=== PATIENT | female | born 1980 | race Caucasian/White ===

== ENCOUNTER → 2021-01-01 | Outpatient (CLI) | payer BC ==
--- NOTE | 2021-01-05 10:45 | HM ---
HOLTER MONITOR REPORT Patient was monitored for 24 hours. The baseline rhythm is a sinus mechanism with normal conduction. The average rate 71 beats per minute, minimum 47, maximum 110 beats per minute. Ventricular ectopic activity was present in the form of occasional single PVCs. Supraventricular ectopic activity was present in the form of rare single PACs. No atrial fibrillation was noted. Symptoms of heart flutter, chest discomfort, palpitations correlated at times with the single PVCs. CONCLUSION: 1. Sinus mechanism, baseline rhythm. 2. Occasional ventricular ectopic activity. 3. Rare supraventricular ectopic activity. 4. Symptoms of fluttering and dyspnea as well as chest discomfort correlated at times with the single PVCs. MMODL / IJN: [id number] /
== END | disposition home or self-care (01) ==
LOC: RADECHMAIN 11:52
PROVIDERS: ATTEND Family Medicine
DX: I49.8 Other specified cardiac arrhythmias (principal); R06.00 Dyspnea, unspecified; R07.89 Other chest pain
CPT/HCPCS: 93225; 93226

== ENCOUNTER 2021-07-12 19:36 | Emergency (ER) | payer BC ==
[2021-07-12] MEDS ORDERED: ASPIRIN 81 MG PO STA (19:45)
--- NOTE | 2021-07-12 19:50 | ED ---
General Adult HPI <Danielle Dong - Last Filed: 07/12/21 19:46> - General Source: RN notes reviewed, old records reviewed <Gabino Polo - Last Filed: 07/12/21 22:52> <Jerson Villa - Last Filed: 07/13/21 01:05> - General Chief complaint: Chest Pain Stated complaint: Chest pain,Arm pain Time Seen by Provider: 07/12/21 19:46 - History of Present Illness Initial comments: 41 year-old female patient with past history significant for hypertension, anodal re-entrant tachycardia s/p ablation presents to the emergency department for evaluation of left arm pain and chest pain. Patient states she does feel short of breath. Reports some nausea. States she is having sharp stabbing pains in the left arm and in the chest. States she feels like she has a lump in her throat. Denies cough, fever, or chills. Denies numbness or tingling. Reports bilateral foot swelling which is not unusual for her. Does admit to smoking cigarettes. No alcohol. Does have family history of of CAD in mother, CHF in father. (Danielle Dong) Patient was initially evaluated by the mid-level provider in the waiting room.. History is as above. In addition, patient is primarily complaining of left arm pain in the lower arm near her hand and forearm. There is no left shoulder pain. She endorses a strange tightness in her chest as well as subjective dyspnea that began this afternoon as well. She denies any leg swelling, history of blood clots. She does have an IUD releases hormone therapy. She denies any hemoptysis. She has any fevers, chills, sick contacts. She did receive her covid 19 vaccination. She presents over concern for the chest discomfort as well as dyspnea which is atypical. Chest pain does improve with rest, and seems to exacerbate with movement, as does the dyspnea. She is also uncertain what is causing her left lower arm pain, but she does have history of radiculopathy. She denies any fevers, chills, cough, sick contacts. Patient is a chronic tobacco user. (Gabino Polo) - Related Data Home Medications Medication Instructions Recorded Confirmed Bisoprolol-Hctz 10-6.25 mg [Ziac 1 tab PO DAILY 07/12/21 07/12/21 10-6.25 MG] L.acidoph,Paracasei, B.lactis 1 cap PO DAILY 07/12/21 07/12/21 [Probiotic] Levothyroxine Sodium [Synthroid] 175 mcg PO DAILY 07/12/21 07/12/21 Omeprazole [PriLOSEC] 40 mg PO DAILY 07/12/21 07/12/21 Turmeric Root Extract [Turmeric] 500 mg PO DAILY 07/12/21 07/12/21 Previous Rx's Medication Instructions Recorded Azithromycin [Zithromax Z-pack (6 0 mg PO DIRECTED #1 pack 07/13/21 tabs)] Allergies Allergy/AdvReac Type Severity Reaction Status Date / Time ibuprofen Allergy Anaphylaxis Verified 07/12/21 23:15 Review of Systems ROS Other: All systems not noted in ROS Statement are negative. <Danielle Dong - Last Filed: 07/12/21 19:46> ROS Other: All systems not noted in ROS Statement are negative. <Gabino Polo - Last Filed: 07/12/21 22:52> ROS Other: All systems not noted in ROS Statement are negative. <Jerson Villa - Last Filed: 07/13/21 01:05> ROS Statement: Those systems with pertinent positive or pertinent negative responses have been documented in the HPI. Review of Systems: CONST: Denies fever EYES: Denies blurry vision ENT: Denies nasal congestion C/V: Endorses chest pain RESP: Endorses shortness of breath GI: Denies abdominal pain : Denies dysuria SKIN: Denies rash. MSK: Endorses left hand pain. NEURO: Denies headache (Gabino Polo) General Exam <Gabino Polo - Last Filed: 07/12/21 22:52> General appearance: alert, in no apparent distress Head exam: Present: atraumatic, normocephalic, normal inspection Eye exam: Present: normal appearance, PERRL, EOMI. Absent: scleral icterus, conjunctival injection, periorbital swelling ENT exam: Present: normal exam, mucous membranes moist Neck exam: Present: normal inspection. Absent: tenderness, meningismus, lymphadenopathy Respiratory exam: Present: normal lung sounds bilaterally. Absent: respiratory distress, wheezes, rales, rhonchi, stridor Cardiovascular Exam: Present: regular rate, normal rhythm, normal heart sounds. Absent: systolic murmur, diastolic murmur, rubs, gallop, clicks GI/Abdominal exam: Present: soft, normal bowel sounds. Absent: distended, tenderness, guarding, rebound, rigid Extremities exam: Present: normal inspection, full ROM, normal capillary refill. Absent: tenderness, pedal edema, joint swelling, calf tenderness Back exam: Present: normal inspection Neurological exam: Present: alert, oriented X3, CN II-XII intact Psychiatric exam: Present: normal affect, normal mood Skin exam: Present: warm, dry, intact, normal color. Absent: rash <Jerson Villa - Last Filed: 07/13/21 01:05> - General Exam Comments Initial Comments: General: Appears in no acute distress. HEAD: Normal with no signs of head trauma. EYES: PERRLA, EOMI, conjunctiva normal, no discharge. ENT: Hearing grossly intact, normal oropharynx. RESPIRATORY: Clear breath sounds bilaterally. No wheezes, rales, or rhonchi. C/V: Regular rate and rhythm. S1 and S2 auscultated, no edema, peripheral pulses 2+ and intact throughout. chest pain is nonreproducible on palpation. ABD: Abd is soft, nontender, nondistended EXT: Normal range of motion, no obvious deformity SKIN: Patient's left hand and forearm pain is reproducible on flexion of her fingers. There is no reproducible on palpation. States that it is overall improved from earlier. NEURO: Alert and oriented 4. (Gabino Polo) Course <Jerson Villa - Last Filed: 07/13/21 01:05> Vital Signs 07/12/21 07/12/21 07/13/21 19:47 22:00 00:00 Temperature 97.4 F L Pulse Rate 72 75 71 Respiratory 18 18 20 Rate Blood Pressure 172/95 129/86 114/68 O2 Sat by Pulse 100 99 99 Oximetry - Reevaluation(s) Reevaluation #1: 07/13/21 01:03 Medical records reviewed (Jerson Villa) Reevaluation #2: 07/13/21 01:04 Patient resting comfortable on reevaluation, no current chest pain (Jerson Villa) Reevaluation #3: 07/13/21 01:04 Patient spoke with regarding findings and results, questions answered (Jerson Villa) Reevaluation #4: 07/13/21 01:04 Patient prefers discharged home on outpatient treatment for pneumonia (Jerson Villa) Medical Decision Making - Lab Data Result diagrams: 07/12/21 20:04 07/12/21 20:04 - EKG Data -: EKG Interpreted by Me <Gabino Polo - Last Filed: 07/12/21 22:52> - Lab Data Result diagrams: 07/12/21 20:04 07/12/21 20:04 - Radiology Data Radiology results: report reviewed (Chest x-ray shows possible pulmonary edema, CTA chest does show pneumonia, no PE), image reviewed <Jerson Villa - Last Filed: 07/13/21 01:05> - Medical Decision Making Based on the patient's presentation and physical exam, I do believe that cardiac workup was just fine is placed by the mid-level provider. I would like to add a d-dimer at this time over concern for possible pulmonary embolism. Patient has a low Wells score for PE. She will be placed on continuous cardiac monitoring. She'll be given an aspirin. She'll also be given Tylenol for her left hand pain. She was in agreement this plan. EKG shows no signs of acute ischemia. Chest x-ray reveals no acute cardio pulmonary process. Lavatory studies are remarkable for a slight leukocytosis of 10.9 which may be reactive. Patient's d-dimer is elevated to 0.65. The remainder of her labs are unremarkable including a negative troponin. Troponin was drawn greater than 4 hours after symptom onset. On reevaluation, patient states her chest pain and shortness of breath have improved. States that her pain in her left hand is under control. I did discuss with her the results of her positive d-dimer would like to obtain a CT PE to rule out pulmonary embolism. She was in agreement this plan. Patient will likely be discharged home if CT PE is negative. Heart scores low at 2. Patient was signed out to the [facility] emergency department physician, Dr. Villa, pending results of CT PE. (Gabino Polo) 41 female to the ER with chest pain, history of high blood pressure. Patient presents today for evaluation regards to chest pain is negative EKG negative troponin, CT negative for PE positive for pneumonia. Patient replacement antibiotics and discharged home (Jerson Villa) - Lab Data Lab Results 07/12/21 07/12/21 07/12/21 Range/Units 20:04 20:04 20:04 WBC 10.9 H (3.8-10.6) k/uL RBC 5.43 H (3.80-5.40) m/uL Hgb 13.5 (11.4-16.0) gm/dL Hct 43.2 (34.0-46.0) % MCV 79.6 L (80.0-100.0) fL MCH 24.9 L (25.0-35.0) pg MCHC 31.3 (31.0-37.0) g/dL RDW 16.9 H (11.5-15.5) % Plt Count 324 (150-450) k/uL MPV 7.6 Neutrophils % 72 % Lymphocytes % 21 % Monocytes % 3 % Eosinophils % 2 % Basophils % 1 % Neutrophils # 7.8 H (1.3-7.7) k/uL Lymphocytes # 2.3 (1.0-4.8) k/uL Monocytes # 0.3 (0-1.0) k/uL Eosinophils # 0.2 (0-0.7) k/uL Basophils # 0.1 (0-0.2) k/uL Hypochromasia Slight Anisocytosis Slight Microcytosis Slight PT 10.0 (9.0-12.0) sec INR 0.9 (<1.2) APTT 24.6 (22.0-30.0) sec D-Dimer (<0.60) mg/L FEU Sodium 137 (137-145) mmol/L Potassium 4.0 (3.5-5.1) mmol/L Chloride 104 (98-107) mmol/L Carbon Dioxide 24 (22-30) mmol/L Anion Gap 9 mmol/L BUN 7 (7-17) mg/dL Creatinine 0.55 (0.52-1.04) mg/dL Est GFR (CKD-EPI)AfAm >90 (>60 ml/min/1.73 sqM) Est GFR (CKD-EPI)NonAf >90 (>60 ml/min/1.73 sqM) Glucose 149 H (74-99) mg/dL Calcium 9.1 (8.4-10.2) mg/dL Magnesium 1.7 (1.6-2.3) mg/dL Total Bilirubin 0.2 (0.2-1.3) mg/dL AST 38 H (14-36) U/L ALT 31 (4-34) U/L Alkaline Phosphatase 89 (38-126) U/L Troponin I (0.000-0.034) ng/mL Total Protein 7.0 (6.3-8.2) g/dL Albumin 3.9 (3.5-5.0) g/dL Lipase 61 (23-300) U/L TSH 1.830 (0.465-4.680) mIU/L 07/12/21 07/12/21 Range/Units 20:04 21:18 WBC (3.8-10.6) k/uL RBC (3.80-5.40) m/uL Hgb (11.4-16.0) gm/dL Hct (34.0-46.0) % MCV (80.0-100.0) fL MCH (25.0-35.0) pg MCHC (31.0-37.0) g/dL RDW (11.5-15.5) % Plt Count (150-450) k/uL MPV Neutrophils % % Lymphocytes % % Monocytes % % Eosinophils % % Basophils % % Neutrophils # (1.3-7.7) k/uL Lymphocytes # (1.0-4.8) k/uL Monocytes # (0-1.0) k/uL Eosinophils # (0-0.7) k/uL Basophils # (0-0.2) k/uL Hypochromasia Anisocytosis Microcytosis PT (9.0-12.0) sec INR (<1.2) APTT (22.0-30.0) sec D-Dimer 0.65 H (<0.60) mg/L FEU Sodium (137-145) mmol/L Potassium (3.5-5.1) mmol/L Chloride (98-107) mmol/L Carbon Dioxide (22-30) mmol/L Anion Gap mmol/L BUN (7-17) mg/dL Creatinine (0.52-1.04) mg/dL Est GFR (CKD-EPI)AfAm (>60 ml/min/1.73 sqM) Est GFR (CKD-EPI)NonAf (>60 ml/min/1.73 sqM) Glucose (74-99) mg/dL Calcium (8.4-10.2) mg/dL Magnesium (1.6-2.3) mg/dL Total Bilirubin (0.2-1.3) mg/dL AST (14-36) U/L ALT (4-34) U/L Alkaline Phosphatase (38-126) U/L Troponin I <0.012 (0.000-0.034) ng/mL Total Protein (6.3-8.2) g/dL Albumin (3.5-5.0) g/dL Lipase (23-300) U/L TSH (0.465-4.680) mIU/L - EKG Data EKG Comments: 12-lead Electrocardiogram Interpretation Note EKG was reviewed and interpreted by myself. 12-lead ECG performed at 1952 is interpreted by me as revealing normal sinus rhythm at a rate of 72 beats per minute. [place] is normal. LA interval is 164 ms, QRS durations 80 ms, QTc is 435 ms.. There is an isolated T-wave inversion in lead III.. R wave progression across the precordium was satisfactory. By my interpretation this EKG is non- diagnostic for acute ischemia. (Gabino Polo) Disposition <Danielle Dong - Last Filed: 07/12/21 19:46> <Gabino Polo - Last Filed: 07/12/21 22:52> Is patient prescribed a controlled substance at d/c from ED?: No <Jerson Villa - Last Filed: 07/13/21 01:05> Clinical Impression: Chest pain of unknown etiology, Elevated d-dimer, Musculoskeletal pain, Atypical chest pain, Community acquired pneumonia Disposition: HOME SELF-CARE Condition: Good Instructions (If sedation given, give patient instructions): Community Acquired Pneumonia (ED) Prescriptions: Azithromycin [Zithromax Z-pack (6 tabs)] 0 mg PO DIRECTED #1 pack Referrals: Bryon Miguel MD [Primary Care Provider] - 1-2 days
[2021-07-12 20:17] LABS: Anisocytosis Slight; Basophils # (A) 0.1 k/uL (0-0.2); Basophils % (A) 1 %; Eosinophils # (A) 0.2 k/uL (0-0.7); Eosinophils % (A) 2 %; HCT 43.2 % (34.0-46.0); HGB 13.5 gm/dL (11.4-16.0); Hypochromasia Slight; Lymphocytes # (A) 2.3 k/uL (1.0-4.8); Lymphocytes % (A) 21 %; MCH 24.9 pg (25.0-35.0); MCHC 31.3 g/dL (31.0-37.0); MCV 79.6 fL (80.0-100.0); Mean Platelet Volume 7.6; Microcytosis Slight; Monocytes # (A) 0.3 k/uL (0-1.0); Monocytes % (A) 3 %; Neutrophils # (A) 7.8 k/uL (1.3-7.7); Neutrophils % (A) 72 %; Platelet Count 324 k/uL (150-450); RBC 5.43 m/uL (3.80-5.40); RDW 16.9 % (11.5-15.5); WBC 10.9 k/uL (3.8-10.6)
[2021-07-12 20:25] LABS: INR 0.9 (<1.2); Partial Thromboplastin Time 24.6 sec (22.0-30.0)
[2021-07-12 20:28] LABS: ALT 31 U/L (4-34); AST 38 U/L (14-36); African American GFR (CKD) >90 (>60 ml/min/1.73 sqM); Albumin 3.9 g/dL (3.5-5.0); Alkaline Phosphatase 89 U/L (38-126); Anion Gap 9 mmol/L; Blood Urea Nitrogen 7 mg/dL (7-17); Calcium 9.1 mg/dL (8.4-10.2); Carbon Dioxide 24 mmol/L (22-30); Chloride 104 mmol/L (98-107); Glucose 149 mg/dL (74-99); Lipase 61 U/L (23-300); Magnesium 1.7 mg/dL (1.6-2.3); Non-African American GFR(CKD) >90 (>60 ml/min/1.73 sqM); Sodium 137 mmol/L (137-145); Total Bilirubin 0.2 mg/dL (0.2-1.3)
[2021-07-12] MEDS ORDERED: ACETAMINOPHEN TAB 500 MG TAB PO STA (21:22)
--- NOTE | 2021-07-12 22:08 | XR ---
EXAMINATION: XR CHEST 2V DATE AND TIME: 07/12/2021 9:28 PM CLINICAL INDICATION: PHH; Chest Pain TECHNIQUE: Departmental protocol COMPARISON: None FINDINGS: The lungs demonstrate a subtle fine reticular pattern of increased attenuation bilaterally which mild ly silhouettes the pulmonary vasculature and can correlate with a clinical diagnosis of elevated left heart pressures. The pleural spaces are negative. The cardiac silhouette is not enlarged. The remainder of the mediastinal silhouette is unremarkable. The skeletal structures and soft tissues are negative for acute findings. The overlying soft tissues are prominent. IMPRESSION: Subtle radiographic finding: mild interstitial pattern which can correlate with mild interstitial pha se pulmonary edema if clinically corroborated.
--- NOTE | 2021-07-13 00:42 | CT ---
EXAMINATION TYPE: CT chest angio for PE DATE OF EXAM: 07/12/2021 COMPARISON: None HISTORY: SOB, elevated d-dimer CT DLP: 840.2 mGycm Automated exposure control for dose reduction was used. CONTRAST: Performed with IV Contrast, patient injected with 75 mL of Isovue 370. There are 3-D post processed images. 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 The lungs are clear of consolidation. There is some mild focal interstitial infiltrate in the lingula left upper lobe measu ring 2.5 cm. There is no pleural effusion. There is no pericardial effusion. Heart size is normal. Th ere is no evidence of a pulmonary mass. There are no hilar masses. There is no mediastinal adenopathy . There is no evidence of filling defect in the pulmonary arteries. Thoracic aorta is intact. There i s no aneurysm or dissection. The ascending aorta measures 3.6 cm. The bony thorax is intact. There is no compression fracture. Sternum is intact. IMPRESSION: Negative exam. No evidence of pulmonary embolism. Minimal lingula infiltrate. Aberrant right subclavi an artery noted.
[2021-07-13] MEDS ORDERED: cefTRIAXone IN SWFI 1,000 MG/10 ML SYRINGE IVP STA (01:01)
[2021-07-13] MEDS ORDERED: AZITHROMYCIN 500 MG TAB PO STA (01:01)
[2021-07-13 01:41] VITALS: BP 132/65; PULSE 75; RESP 18; TEMP 99
== END 2021-07-13 01:20 | disposition home or self-care (01) ==
LOC: EC 19:36
DX: R07.89 Other chest pain (principal); M79.602 Pain in left arm; J18.9 Pneumonia, unspecified organism; R79.89 Other specified abnormal findings of blood chemistry; I10 Essential (primary) hypertension; F17.210 Nicotine dependence, cigarettes, uncomplicated; Z88.1 Allergy status to other antibiotic agents
CPT/HCPCS: 99285; 96374; 36415; 93005; 85379; 83880; 80053; 84443; 83690; 83735; 84484; 85025; 85610; 85730; 71046; 71275; J0696; Q9967

== ENCOUNTER 2023-02-14 17:03 | Emergency (ER) | payer BC ==
[2023-02-14 18:09] LABS: Basophils # (A) 0.1 k/uL (0-0.2); Basophils % (A) 1 %; Eosinophils # (A) 0.4 k/uL (0-0.7); Eosinophils % (A) 4 %; HCT 43.5 % (34.0-46.0); HGB 14.2 gm/dL (11.4-16.0); Lymphocytes # (A) 2.3 k/uL (1.0-4.8); Lymphocytes % (A) 23 %; MCH 26.2 pg (25.0-35.0); MCHC 32.6 g/dL (31.0-37.0); MCV 80.2 fL (80.0-100.0); Mean Platelet Volume 7.3; Monocytes # (A) 0.4 k/uL (0-1.0); Monocytes % (A) 4 %; Neutrophils # (A) 6.9 k/uL (1.3-7.7); Neutrophils % (A) 68 %; Platelet Count 231 k/uL (150-450); RBC 5.43 m/uL (3.80-5.40); RDW 15.3 % (11.5-15.5); WBC 10.2 k/uL (3.8-10.6)
--- NOTE | 2023-02-14 18:39 | US ---
EXAMINATION TYPE: US venous doppler duplex LE LT DATE OF EXAM: 02/14/2023 6:30 PM COMPARISON: NONE CLINICAL HISTORY: leg pain. Cramping left leg. SIDE PERFORMED: Left TECHNIQUE: The lower extremity deep venous system is examined utilizing real time linear array sonog scott with graded compression, doppler sonography and color-flow sonography. VESSELS IMAGED: Common Femoral Vein Deep Femoral Vein Greater Saphenous Vein * Femoral Vein Popliteal Vein Small Saphenous Vein * Proximal Calf Veins (* superficial vessels) Left Leg: Negative for DVT IMPRESSION: No evidence of deep vein thrombosis in the left leg.
[2023-02-14 18:40] LABS: Chloride 103 mmol/L (98-107); Glucose 91 mg/dL (74-99); Potassium 3.5 mmol/L (3.5-5.1)
[2023-02-14 18:43] LABS: ALT 38 U/L (4-34); AST 33 U/L (14-36); African American GFR (CKD) >90 (>60 ml/min/1.73 sqM); Alkaline Phosphatase 90 U/L (38-126); Anion Gap 8 mmol/L; Blood Urea Nitrogen 5 mg/dL (7-17); Calcium 8.7 mg/dL (8.4-10.2); Carbon Dioxide 29 mmol/L (22-30); Magnesium 1.9 mg/dL (1.6-2.3); Non-African American GFR(CKD) >90 (>60 ml/min/1.73 sqM); Sodium 140 mmol/L (137-145); Total Bilirubin 0.4 mg/dL (0.2-1.3)
--- NOTE | 2023-02-14 18:50 | XR ---
EXAMINATION TYPE: XR foot complete LT DATE OF EXAM: 02/14/2023 COMPARISON: NONE HISTORY: Pain and swelling TECHNIQUE: 3 views FINDINGS: There is plantar calcaneal spurring. Metatarsals are intact. I see no fracture or dislocati on. There is mild soft tissue swelling of the forefoot. IMPRESSION: Mild soft tissue swelling. No fracture seen.
--- NOTE | 2023-02-14 18:58 | ED ---
Extremity Problem HPI - General Chief complaint: Extremity Problem,Nontraumatic Stated complaint: lt foot swelling/pain Time Seen by Provider: 02/14/23 17:18 Source: patient Mode of arrival: ambulatory Limitations: no limitations - History of Present Illness Initial comments: Patient is a 42-year-old female who presents to the emergency department for sw elling of left foot. It started 6 weeks ago. Patient denies injury. Patient notices worsening of swelling at the end of the day. Over the past week patient has felt mild cramps in her foot which radiates into her leg. She denies leg weakness. Denies fever, chills, nausea, vomiting. Denies chest pain and shortness of breath. She denies history of DVT and PE. Denies hormone repl acement, long car rides, airplane travel, surgical interventions, known cancers, family history of clotting. Patient does smoke one half pack of cigarettes a day. - Related Data Home Medications Medication Instructions Recorded Confirmed Bisoprolol-Hctz 10-6.25 mg [Ziac 1 tab PO DAILY 07/12/21 02/14/23 10-6.25 MG] Levothyroxine Sodium [Synthroid] 75 mcg PO DAILY 02/14/23 02/14/23 Omeprazole Magnesium [PriLOSEC OTC] 40 mg PO DAILY 02/14/23 02/14/23 Allergies Allergy/AdvReac Type Severity Reaction Status Date / Time ibuprofen Allergy Anaphylaxis Verified 02/14/23 17:48 Review of Systems ROS Statement: Those systems with pertinent positive or pertinent negative responses have been documented in the HPI. ROS Other: All systems not noted in ROS Statement are negative. Past Medical History Past Medical History: GERD/Reflux, Hypertension, Thyroid Disorder Additional Past Medical History / Comment(s): tachycardia History of Any Multi-Drug Resistant Organisms: None Reported Past Surgical History: Ablation, Section Past Psychological History: No Psychological Hx Reported Smoking Status: Current every day smoker Past Alcohol Use History: Rare Past Drug Use History: None Reported General Exam Limitations: no limitations General appearance: alert, in no apparent distress Head exam: Present: atraumatic, normocephalic, normal inspection Respiratory exam: Present: normal lung sounds bilaterally. Absent: respiratory distress, wheezes, rales, rhonchi, stridor Cardiovascular Exam: Present: regular rate, normal rhythm, normal heart sounds. Absent: systolic murmur, diastolic murmur, rubs, gallop, clicks Extremities exam: Present: normal capillary refill, other (Mild swelling of left foot without overlying erythema, ecchymosis, tenderness. Neurovascularly intact. Full range of motion.). Absent: calf tenderness Neurological exam: Present: alert, oriented X3, CN II-XII intact Psychiatric exam: Present: normal affect, normal mood Skin exam: Present: warm, dry, intact, normal color. Absent: rash Course Vital Signs 02/14/23 02/14/23 17:15 19:12 Temperature 97.8 F 98.1 F Pulse Rate 60 62 Respiratory 20 16 Rate Blood Pressure 146/94 139/87 O2 Sat by Pulse 98 98 Oximetry Medical Decision Making - Medical Decision Making Was pt. sent in by a medical professional or institution (, PA, SOURCING COORDINATOR, urgent care, hospital, or penitentiary...) When possible be specific @ -No Did you speak to anyone other than the patient for history (EMS, parent, family, police, friend...)? What history was obtained from this source @ -No Did you review nursing and triage notes (agree or disagree)? Why? @ -I reviewed and agree with nursing and triage notes Were old charts reviewed (outside hosp., previous admission, EMS record, old EKG, old radiological studies, urgent care reports/EKG's, penitentiary records)? Report findings @ -No old charts were reviewed Differential Diagnosis (chest pain, altered mental status, abdominal pain women, abdominal pain men, vaginal bleeding, weakness, fever, dyspnea, syncope, headache, dizziness, GI bleed, back pain, seizure, CVA, palpatations, mental health)? @ -DVT, cellulitis, fracture. This list is not all inclusive EKG interpreted by me (3pts min.). @ -As above X-rays interpreted by me (1pt min.). @ -[N He has, left foot x-ray shows mild soft tissue swelling without bone abnormality CT interpreted by me (1pt min.). @ -None done U/S interpreted by me (1pt. min.). @ -No. US report negative for acute DVT in LLE What testing was considered but not performed or refused? (CT, X-rays, U/S, labs)? Why? @ -None What meds were considered but not given or refused? Why? @ -Considered pain medication however patient states she does not have pain currently. Did you discuss the management of the patient with other professionals (professionals i.e. , PA, SOURCING COORDINATOR, lab, RT, psych nurse, social service worker, it communications manager, teacher, adult parole officer, major case detective)? Give summary @ -No Was smoking cessation discussed for >3mins.? @ -No Was critical care preformed (if so, how long)? @ -No Were there social determinants of health that impacted care today? How? (Homelessness, low income, unemployed, alcoholism, drug addiction, transportation, low edu. Level, literacy, decrease access to med. care, group home, rehab)? @ -No Was there de-escalation of care discussed even if they declined (Discuss DNR or withdrawal of care, Hospice)? DNR status @ -No What co-morbidities impacted this encounter? (DM, HTN, Smoking, COPD, CAD, Cancer, CVA, ARF, Chemo, Hep., AIDS, mental health diagnosis, sleep apnea, morbid obesity)? @ -None Was patient admitted / discharged? Hospital course, mention meds given and route, prescriptions, significant lab abnormalities, going to OR and other pertinent info. @Patient presenting for mild swelling of left foot. No pain with palpation. No erythema, ecchymosis, warmth. No acute DVT detected. Laboratory studies obtained and unremarkable. Patient to follow-up with primary care provider. We discussed healthy eating habits and exercise. Patient will elevate and compress at home Undiagnosed new problem with uncertain prognosis? @ -No Drug Therapy requiring intensive monitoring for toxicity (Heparin, Nitro, Insulin, Cardizem)? @ -No Were any procedures done? @ -No Diagnosis/symptom? @ -left foot swelling Acute, or Chronic, or Acute on Chronic? @ -acute Uncomplicated (without systemic symptoms) or Complicated (systemic symptoms)? @ -uncomplicated Side effects of treatment? @ -No Exacerbation, Progression, or Severe Exacerbation? @ -No Poses a threat to life or bodily function? How? (Chest pain, [place], [place], pneumonia, PE, COPD, DKA, ARF, appy, cholecystitis, CVA, Diverticulitis, Homicidal, Suicidal, threat to staff... and all critical care pts) @ -No Dr. Landis is my attending - Lab Data Result diagrams: 02/14/23 17:50 02/14/23 17:50 Lab Results 02/14/23 02/14/23 Range/Units 17:50 17:50 WBC 10.2 (3.8-10.6) k/uL RBC 5.43 H (3.80-5.40) m/uL Hgb 14.2 (11.4-16.0) gm/dL Hct 43.5 (34.0-46.0) % MCV 80.2 (80.0-100.0) fL MCH 26.2 (25.0-35.0) pg MCHC 32.6 (31.0-37.0) g/dL RDW 15.3 (11.5-15.5) % Plt Count 231 (150-450) k/uL MPV 7.3 Neutrophils % 68 % Lymphocytes % 23 % Monocytes % 4 % Eosinophils % 4 % Basophils % 1 % Neutrophils # 6.9 (1.3-7.7) k/uL Lymphocytes # 2.3 (1.0-4.8) k/uL Monocytes # 0.4 (0-1.0) k/uL Eosinophils # 0.4 (0-0.7) k/uL Basophils # 0.1 (0-0.2) k/uL Sodium 140 (137-145) mmol/L Potassium 3.5 (3.5-5.1) mmol/L Chloride 103 (98-107) mmol/L Carbon Dioxide 29 (22-30) mmol/L Anion Gap 8 mmol/L BUN 5 L (7-17) mg/dL Creatinine 0.53 (0.52-1.04) mg/dL Est GFR (CKD-EPI)AfAm >90 (>60 ml/min/1.73 sqM) Est GFR (CKD-EPI)NonAf >90 (>60 ml/min/1.73 sqM) Glucose 91 (74-99) mg/dL Calcium 8.7 (8.4-10.2) mg/dL Magnesium 1.9 (1.6-2.3) mg/dL Total Bilirubin 0.4 (0.2-1.3) mg/dL AST 33 (14-36) U/L ALT 38 H (4-34) U/L Alkaline Phosphatase 90 (38-126) U/L Total Protein 7.0 (6.3-8.2) g/dL Albumin 4.0 (3.5-5.0) g/dL Disposition Clinical Impression: Swelling of left foot Disposition: HOME SELF-CARE Condition: Good Instructions (If sedation given, give patient instructions): Swollen Joint (ED) Additional Instructions: follow up with PCP in 1-2 days. Return to the ED if you experience new, worsenin g, concerning symptoms Is patient prescribed a controlled substance at d/c from ED?: No Referrals: Bryon Miguel MD [Primary Care Provider] - 1-2 days
[2023-02-14 19:14] VITALS: BP 139/87; PULSE 62; RESP 16; TEMP 98.1
== END 2023-02-14 19:14 | disposition home or self-care (01) ==
LOC: EC 17:03
DX: M79.89 Other specified soft tissue disorders (principal); K21.9 Gastro-esophageal reflux disease without esophagitis; I10 Essential (primary) hypertension; E07.9 Disorder of thyroid, unspecified; F17.200 Nicotine dependence, unspecified, uncomplicated; Z88.8 Allergy status to other drugs, medicaments and biological substances; Z79.890 Hormone replacement therapy; Z79.899 Other long term (current) drug therapy
CPT/HCPCS: 36415; 80053; 83735; 85025; 99284